=== PATIENT | female | born 2000 | race Caucasian/White ===

== ENCOUNTER 2022-03-05 01:35 | Inpatient (IN) | payer OTHER ==
[2022-03-05] MEDS ORDERED: ELECTROLYTE-148 SOLN 1,000 ML IV SCH (02:30)
[2022-03-05] MEDS ORDERED: WITCH HAZEL 50% (TUCKS) 40 PAD/JAR PAD TP PRN (02:39)
[2022-03-05] MEDS ORDERED: BENZOCAINE 20% 57 GM BOTTLE TP PRN (02:39)
[2022-03-05] MEDS ORDERED: ACETAMINOPHEN 325 MG TABLET (FP) PO PRN (02:39)
[2022-03-05] MEDS ORDERED: BENZOCAINE 28 GM HEMORRHOIDAL OINTMENT TP PRN (02:39)
[2022-03-05] MEDS ORDERED: BISACODYL 10 MG SUPP.RECT RC PRN (02:39)
[2022-03-05] MEDS ORDERED: MISOPROSTOL 200 MCG TABLET PV ONE (02:40)
[2022-03-05] MEDS: IBUPROFEN 600 MG TABLET (FP) PO PRN ×3 (02:41→17:45)
[2022-03-05] MEDS ORDERED: OXYTOCIN 20 UNITS in 0.9% NS 20 UNIT/1,000 ML INFUS.BAG IV SCH (02:45)
[2022-03-05 03:02] LABS: BASO % 0.3 % (0-2.0); EOS % 5.3 % (0-4.5); HEMATOCRIT 32.3 % (32.4-45.2); HEMOGLOBIN 10.6 GM/dL (10.7-15.3); LYMPH % 42.1 % (8-40); MCH 25.1 pg (25.7-33.7); MCHC 32.7 g/dl (32.0-36.0); MEAN CELL VOLUME 76.9 fl (80-96); MEAN PLT VOLUME 9.6 fl (7.5-11.1); MONO % 8.6 % (3.8-10.2); NEUT % 43.7 % (42.8-82.8); PLATELET COUNT 136 10^3/uL (134-434); RDW 16.4 % (11.6-15.6); WHITE BLOOD COUNT 4.9 K/mm3 (4.0-10.0)
[2022-03-05 03:12] LABS: INR 0.91 (0.83-1.09); PROTHROMBIN TIME (PATIENT) 10.4 SEC (9.7-13.0)
[2022-03-05 03:15] LABS: ACTIVATED PTT 26.8 SECONDS (25.2-36.5)
[2022-03-05 03:23] LABS: BLOOD UREA NITROGEN 8.4 mg/dL (7-18); CALCIUM 8.9 mg/dL (8.5-10.1)
[2022-03-05 03:26] LABS: CREATININE 0.6 mg/dL (0.55-1.3)
[2022-03-05 03:28] LABS: BILIRUBIN,TOTAL 0.3 mg/dL (0.2-1)
[2022-03-05 03:46] VITALS: BMI 17.8
[2022-03-05 03:52] LABS: SYPHILIS W/ RPR CONF NON-REACTIVE (NONREACTIVE)
[2022-03-05 04:19] LABS: HIV INTERPRETATION NEGATIVE (NEGATIVE)
[2022-03-05 05:43] LABS: EPI CELLS 2 /uL (0-25.1); HYALINE CASTS 0 /uL (0-3.1); URINE APPEARANCE CLEAR; URINE BACTERIA 2 /uL (0-1359); URINE BILIRUBIN NEGATIVE (NEGATIVE); URINE COLOR RED; URINE GLUCOSE (UA) NEGATIVE (NEGATIVE); URINE KETONE NEGATIVE (NEGATIVE); URINE LEUK ESTERASE TRACE (NEGATIVE); URINE NITRITE NEGATIVE (NEGATIVE); URINE PROTEIN 1+ (NEGATIVE); URINE RBC 5902 /uL (0-23.9); URINE UROBILINOGEN 0.2 mg/dL (0.2-1.0); URINE WBC 5 /uL (0-25.8)
[2022-03-05 05:49] LABS: METHADONE, UR NEGATIVE (NEGATIVE); OPIATES, URI NEGATIVE (NEGATIVE); PHENCYCLIDINE,URINE NEGATIVE (NEGATIVE); URINE BENZODIAZEPINES NEGATIVE (NEGATIVE)
[2022-03-05 05:56] LABS: COCAINE, UR NEGATIVE (NEGATIVE); URINE AMPHETAMINES NEGATIVE (NEGATIVE); URINE BARBITURATES NEGATIVE (NEGATIVE)
[2022-03-06 09:09] LABS: BASO % 0.5 % (0-2.0); EOS % 5.8 % (0-4.5); HEMATOCRIT 29.8 % (32.4-45.2); HEMOGLOBIN 9.7 GM/dL (10.7-15.3); LYMPH % 40.6 % (8-40); MCH 24.9 pg (25.7-33.7); MCHC 32.4 g/dl (32.0-36.0); MEAN CELL VOLUME 76.8 fl (80-96); MEAN PLT VOLUME 9.7 fl (7.5-11.1); MONO % 5.1 % (3.8-10.2); PLATELET COUNT 128 10^3/uL (134-434); RBC 3.88 M/mm3 (3.60-5.2); RDW 16.2 % (11.6-15.6); WHITE BLOOD COUNT 6.9 K/mm3 (4.0-10.0)
[2022-03-06] MEDS: IBUPROFEN 600 MG TABLET (FP) PO PRN (20:38)
[2022-03-06] MEDS ORDERED: SENNOSIDES/DOCUSATE COMBO (SENNA PLUS) TABLET (UD) PO PRN (22:00)
[2022-03-06 22:08] VITALS: RESP 18
[2022-03-07 08:21] VITALS: BP 131/77; PULSE 47; TEMP 98.3
== END 2022-03-07 12:53 | disposition home or self-care (01) | DRG 560 ==
LOC: JLDR 01:35 → J3W 05:00
PROVIDERS: ADMIT Student in an Organized Health Care Education/Training Program; ATTEND Student in an Organized Health Care Education/Training Program
PROC: 10E0XZZ Delivery of Products of Conception, External Approach (ICD-10-PCS; principal; 2022-03-05)
DX: O62.3 Precipitate labor (principal); Z3A.38 38 weeks gestation of pregnancy; Z37.0 Single live birth
CPT/HCPCS: 36415; 59409; 80053; 80307; 81003; 85025; 85610; 85730; 86762; 86780; 86850; 86900; 86901; 87340; 87389; C9803-CS; U0003; U0005